=== PATIENT | male | born 1990 | race Caucasian/White ===

== ENCOUNTER → 2019-03-10 | Outpatient (CLI) | payer OTHER | LOC: RAD 10:22 | DX: N50.82 Scrotal pain (principal) ==

== ENCOUNTER 2019-09-08 07:35 | Emergency (ER) | payer OTHER ==
[~2019-09-08] VITALS: Ht 180.3 cm; Wt 108.6 kg
[2019-09-08 08:28] LABS: EOS # 0.4 (0.04-0.40); EOS % 3.6 % (0.0-4.0); HEMATOCRIT 43.8 % (42.0-52.0); HEMOGLOBIN 15.2 g/dL (13.5-18.0); LYMPH# 1.9 (1.50-4.00); MEAN CELL VOLUME 85 fl (78-100); MEAN CORPUSCULAR HEMOGLOBIN 30 pg (27-31); MEAN CORPUSCULAR HGB CONC 35 g/dL (33-37); MEAN PLATELET VOLUME 9.5 fl (7.4-10.4); MONO # 0.8 (0.20-0.80); NEU # 6.8 (1.40-6.50); PLATELET COUNT 183 K/mm3 (130-400); RED BLOOD COUNT 5.13 M/mm3 (4.20-5.60); RED CELL DISTRIBUTION WIDTH 12.7 % (11.5-14.5); WHITE BLOOD COUNT 9.8 K/mm3 (4.8-10.8)
[2019-09-08 08:30] LABS: ALBUMIN 4.2 g/dL (3.5-5.0)
[2019-09-08 08:35] LABS: TOTAL BILIRUBIN 0.5 mg/dL (0.2-1.2)
[2019-09-08] MEDS ORDERED: ZOFRAN4 M2 PO (09:39)
[2019-09-08] MEDS ORDERED: ANUSOL-HC SUPPO25 MG RC (09:39)
[2019-09-08 10:37] VITALS: BP 113/80
== END 2019-09-08 10:25 | disposition home or self-care (01) ==
LOC: ED 07:35
PROVIDERS: Nurse Practitioner Primary Care
DX: K64.8 Other hemorrhoids (principal); R55 Syncope and collapse; R11.2 Nausea with vomiting, unspecified
CPT/HCPCS: J2405; J7030

== ENCOUNTER → 2020-10-19 | Outpatient (CLI) | payer OTHER ==
[~2020-10-19] MED LIST: ANUSOL-HC SUPPO25 MG RC; ZOFRAN4 M2 PO
== END ==
LOC: RAD 19:09
DX: K59.00 Constipation, unspecified (principal)

== ENCOUNTER 2021-07-19 14:49 | Emergency (ER) | payer OTHER ==
[2021-07-19 16:13] LABS: BASO # 0.01 K/mm3 (0.02-0.10); HEMATOCRIT 43.5 % (42.0-52.0); LYMPH# 0.85 K/mm3 (1.50-4.00); MEAN CELL VOLUME 84 fl (78-100); MEAN CORPUSCULAR HEMOGLOBIN 29 pg (27-31); MEAN CORPUSCULAR HGB CONC 35 g/dL (33-37); MEAN PLATELET VOLUME 8.5 fl (7.4-10.4); MONO # 0.23 K/mm3 (0.20-0.80); PLATELET COUNT 136 K/mm3 (130-400); RED BLOOD COUNT 5.16 M/mm3 (4.20-5.60); RED CELL DISTRIBUTION WIDTH 11.8 % (11.5-14.5)
[2021-07-19 16:29] LABS: ALBUMIN 3.8 g/dL (3.5-5.0)
[2021-07-19 16:30] LABS: POTASSIUM 4.1 mmol/L (3.5-5.1)
[2021-07-19 16:31] LABS: CALCIUM 8.9 mg/dL (8.3-10.5)
[2021-07-19 16:32] LABS: TOTAL PROTEIN 7.3 g/dL (6.4-8.3)
[2021-07-19 16:34] LABS: TOTAL BILIRUBIN 0.5 mg/dL (0.2-1.2)
[2021-07-19 17:23] LABS: D-DIMER 0.84 mg/L FEU (0.15-0.50)
[2021-07-20 09:40] LABS: ALBUMIN 3.7 g/dL (3.5-5.0)
[2021-07-20 09:41] LABS: POTASSIUM 4.2 mmol/L (3.5-5.1)
[2021-07-20 09:42] LABS: CALCIUM 8.9 mg/dL (8.3-10.5)
[2021-07-20 09:43] LABS: TOTAL PROTEIN 7.6 g/dL (6.4-8.3)
[2021-07-20 09:45] LABS: BASO # 0.03 K/mm3 (0.02-0.10); EOS # 0.12 K/mm3 (0.04-0.40); EOS % 2.4 % (0.0-4.0); HEMATOCRIT 39.9 % (42.0-52.0); HEMOGLOBIN 13.7 g/dL (13.5-18.0); LYMPH# 1.08 K/mm3 (1.50-4.00); MEAN CELL VOLUME 92 fl (78-100); MEAN CORPUSCULAR HEMOGLOBIN 31 pg (27-31); MEAN CORPUSCULAR HGB CONC 34 g/dL (33-37); MEAN PLATELET VOLUME 10.8 fl (7.4-10.4); MONO # 0.29 K/mm3 (0.20-0.80); PLATELET COUNT 232 K/mm3 (130-400); RED BLOOD COUNT 4.36 M/mm3 (4.20-5.60); RED CELL DISTRIBUTION WIDTH 14.4 % (11.5-14.5); TOTAL BILIRUBIN 0.5 mg/dL (0.2-1.2); WHITE BLOOD COUNT 4.9 K/mm3 (4.8-10.8)
[2021-07-20 10:31] VITALS: BP 110/38
== END 2021-07-20 10:18 | disposition short-term general hospital (02) ==
LOC: ED 14:49
PROVIDERS: Family Medicine
DX: U07.1 COVID-19 (principal); E66.9 Obesity, unspecified; Z68.34 Body mass index [BMI] 34.0-34.9, adult; Z20.822 Contact with and (suspected) exposure to COVID-19
CPT/HCPCS: J0696; J1100; J1650; J2405; J7030; Q9967

== ENCOUNTER → 2021-08-01 | Outpatient (CLI) | payer OTHER ==
[2021-08-01 12:14] LABS: ALBUMIN 3.6 g/dL (3.5-5.0); POTASSIUM 3.7 mmol/L (3.5-5.1)
[2021-08-01 12:15] LABS: CALCIUM 9.4 mg/dL (8.3-10.5)
[2021-08-01 12:16] LABS: TOTAL PROTEIN 6.7 g/dL (6.4-8.3)
[2021-08-01 12:18] LABS: TOTAL BILIRUBIN 0.5 mg/dL (0.2-1.2)
== END ==
LOC: LAB 11:45
PROVIDERS: Family Medicine
DX: K75.9 Inflammatory liver disease, unspecified (principal); R73.9 Hyperglycemia, unspecified

== ENCOUNTER → 2021-08-26 | Outpatient (CLI) | payer OTHER | LOC: VAS 10:49 → RAD 11:00 → VAS 11:00 | DX: U07.1 COVID-19 (principal) ==

== ENCOUNTER → 2021-09-12 | Outpatient (CLI) | payer OTHER ==
[2021-09-12 15:43] LABS: ALBUMIN 4.3 g/dL (3.5-5.0)
[2021-09-12 15:48] LABS: TOTAL BILIRUBIN 0.6 mg/dL (0.2-1.2)
[2021-09-12 15:52] LABS: DIRECT BILIRUBIN 0.3 mg/dL (0.0-0.5)
== END ==
LOC: LAB 08:59 → RAD 08:59
PROVIDERS: Family Medicine
DX: K75.9 Inflammatory liver disease, unspecified (principal); E11.9 Type 2 diabetes mellitus without complications; R73.03 Prediabetes; R00.0 Tachycardia, unspecified; Z86.16 Personal history of COVID-19

== ENCOUNTER → 2024-05-23 | Outpatient (CLI) | payer OTHER | LOC: LAB 08:43 | DX: R73.03 Prediabetes (principal) ==